=== PATIENT | male | born 1960 ===

== ENCOUNTER 2024-05-21 07:33 | Outpatient (REF) | payer OTHER, SELFPAY ==
--- OUTSIDE RECORDS SUMMARY | 2024-05-21 07:36 | XMS_ITS | Encounter Summary ---
Author Organization [employer] Address [address] [place] [address] Care Team Providers Care Videogame Designer Name Role Phone Wilma Bautista PA-C Primary Care Provider Sherlyn ailable Encounter Details Date Type Department Care Team (Latest Contact Info) Description 05/05/2024 Travel Social History Tobacco Use Types Packs/Day Years Used Date Smoking Tobacco: Never Smokeless Tobacco: Never Alcohol Use Standard Drinks/Week Comments Yes 0 (1 standard drink = 0.6 oz pur e alcohol) Daily Housing Stability Answer Date Recorded What is your housing situation today? I have berry concepcion 05/05/[address] you li ve. Do you have problems with any of the following? None of the above 05/05/2024 Food Insecurity Answer Date Recorded Within the past 12 months, y ou worried that your food would run out before you got money to buy more: Never True 05/05/2024 Within the past 12 months,th e food you bought just didn't last and you didn't have enough money to get more: Never True Transportation Answer Date Recorded In the past 12 months, has l ack of transportation kept you from medical appts, meetings, work or from getting things needed for daily living? No 05/05/2024 Utilities Answer Date Recorded In the past 12 months, has t he electric, gas, oil or water company threatened to shut off services in your home? No 05/05/2024 Depression Answer Date Recorded Patient Health Questionnaire-2 Score 0 05/05/2024 Internet Access Answer Date Recorded Internet Access Q1 Yes 05/05/2024 Internet Access Q2 Not on file 05/05/2024 Sex and Gender Information Value Date Recorded Sex Assigned at Male 05/22/2022 8:39 AM EST Legal Sex Male 8:38 PM EDT Gender Identity Male 05/22/2022 8:39 AM EST Sexual Orientation Choose not to disclose 2022 8:39 AM EST documented as of this encounter Plan of Treatment Not on file documented as of this encounter Visit Diagnoses Not on filedocumented in this encounter Care Teams Videogame Designer Relationship Specialty Start Date End Date Wilma Bautista PA-C PCP - General Family Medicine 12/03/22 documented as of this encounter
--- OUTSIDE RECORDS SUMMARY | 2024-05-21 07:36 | XMS_ITS | Encounter Summary ---
Author Organization [employer] [facility] Address [address] [facility] 7[address] [place] [address] Care Team Providers Care Regulatory Affairs Consultant Name Role Phone Wilma Bautista PA-C Primary Care Provider Unav ailable Encounter Details Date Type Department Care Team (Late st Contact Info) Description 08/29/2023 Orders Only [address] [address] Wilma Bautista PA-C Skin lesion Social History Tobacco Use Types Packs/Day Years Used Date Smoking Tobacco: Never Sex and Gender Information Value Date Recorded Sex Assigned at Male 05/22/2022 8:39 AM EST Legal Sex Male 8:38 PM EDT Gender Identity Male 05/22/2022 8:39 AM EST Sexual Orientation Choose not to disclose 2022 8:39 AM EST documented as of this encounter Plan of Treatment Not on file documented as of this encounter Procedures Procedure Name Priority Date/Time Associated Diagnosis Comments AMB REFERRAL TO DERMATOLOGY Routine 04/29/2023 Skin lesion documented in this encounter Results * Referral to Dermatology (04/29/2023) Wilma Bautista PA-C OUTPATIENT REFERRAL ORDERAB LES Final Result documented in this encounter Visit Diagnoses Diagnosis Skin lesion Unspecified disorder of skin and subcutaneous tissue documented in this encounter Care Teams Regulatory Affairs Consultant Relationship Specialty Start Date End Date Wilma Bautista PA-C PCP - General Family Medicine 12/03/22 documented as of this encounter
--- OUTSIDE RECORDS SUMMARY | 2024-05-21 07:36 | XMS_ITS | Encounter Summary ---
Author Organization [employer] [facility] Address [address] [place] [address] 7[address] [place] [address] Care Team Providers Care Reaming Machine Operator For Plastic Name Role Phone Wilma Bautista PA-C Primary Care Provider Unav ailable Reason for Referral * Consultation (Routine) - Pending Review Specialty Diagnoses / Procedures Referred By Mansoor mccann Referred To Contact Neurosurgery Diagnoses Spinal stenosis of cervical region Carlyn Rocha FNP [address] [place] [address] Phone: tel: fax: David Loco [address] [place] [address] Phone: tel: fax: Referral ID Status Reason Start Date Expiration Date Visits Requested Visits Authorized [id number] Pending Review Specialty Services Required 05/05/2024 05/05/2025 1 1 Reason for Visit * Reason Comments Follow-up Follow up from the [facility], right arm went numb - thought it was a stoke, just stenosis acting up. Encounter Details Date Type Department Care Team (Late st Contact Info) Description 05/05/2024 11:20 AM EST Office Visit [facility] MEDICAL [address] [place] [address] Carlyn Rocha FNP [address] [place] [address] Spinal stenosis of cervical region (Primary Dx); H/O cold sores; Primary hypertension; Alcohol use; Vitamin B 12 deficiency Social History Tobacco Use Types Packs/Day Years Used Date Smoking Tobacco: Never Smokeless Tobacco: Never Tobacco Cessation:Counseling Given: Not Answered Alcohol Use Standard Drinks/Week Comments Yes 0 [...] AM EST documented as of this encounter Last Filed Vital Signs Vital Sign Reading Time Taken Comments Blood Pressure 126/60 05/05/2024 11:29 AM EST Pulse 76 05/05/2024 11:29 AM EST Temperature 36.3 ??C (97.4 ??F) 05/05/2024 11:[address] Respiratory Rate - - Oxygen Saturation - - Inhaled Oxygen Concentration - - Weight 73 kg (161 lb) 05/05/2024 11:29 AM EST Height - - Body Mass Index 24.48 09/30/2023 8:36 AM EDT documented in this encounter Progress Notes * GAEL Martel - 05/05/2024 11:20 AM EST Subjective Doug Moya is a 63 y.o. male who presents for: Chief complaint Follow-up for numbness and tingling in the right arm and cervical stenosis. History of present illness - Numbness and tingling in the right arm, different from usual symptoms in the left arm. - Known cervical stenosis, typically affects the left side. - No recurrence of symptoms since the urgent care visit. - Multi-level degenerative disc disease with inflammation on joint facets. - Previous MRI available from October. - Pain at the base of the top of the shoulders, slightly to the left, with radiating pain down the left side. - History of B12 deficiency. Past medical history - Cervical stenosis - Multi-level degenerative disc disease - History of vitamin B12 deficiency Social history - Consumes 6 to 8 light beers daily Current medications - Ibuprofen, as needed Vitals - Blood pressure: Normal Imaging results - MRI from October: Multi-level degenerative disc disease, inflammation on joint facets Health Maintenance Topic Date Due Depression Screening Never done SDOH Screening Never done Alcohol/Substance Use Screening Never done Influenza Vaccine (1) 12/14/2023 COVID-19 Vaccine (2023- season) 2023 Tobacco Screening 02/10/2025 Colorectal Cancer Screening 02/18/2026 Lipid Panel 06/19/2028 DTaP/Tdap/Td Vaccines (6 - Td or Tdap) 02/12/2032 RSV Patients and Patients Aged 60 years or older (1 - 1-dose 75+ series) 06/29/2035 Zoster Vaccines Completed HIV Screening Completed Hepatitis C Screening Completed RSV under 20 months Aged Out HIB Vaccines Aged Out Hepatitis B Vaccines Aged Out IPV Vaccines Aged Out Hepatitis A Vaccines Aged Out Meningococcal Vaccine Aged Out Rotavirus Vaccines Aged Out HPV Vaccines Aged Out Pneumococcal Vaccine: Pediatrics (0 to 5 Years) and At-Risk Patients (6 to 64 Years) Aged Out Current Outpatient Medications Medication Sig Dispense Refill cholecalciferol (Vitamin D-3) 25 MCG (1000 UT) capsule 1 tablet in the morning. cyanocobalamin (Vitamin B-12) 1000 MCG tablet Take 100 mcg by mouth. FOLIC ACID PO Folic Acid amLODIPine (Norvasc) 5 MG tablet Take 1 tablet (5 mg) by mouth Once per day. 90 tablet 1 LYSINE PO Lysine (Patient not taking: Reported on 05/05/2024) valACYclovir (Valtrex) 1 g tablet Take 1 tablet (1,000 mg) by mouth 2 times daily. 4 tablet 0 No current facility-administered medications for this visit. PAST MEDICAL, SURGICAL, SOCIAL AND FAMILY HISTORY: Reviewed and updated MEDICATIONS AND ALLERGIES: Reviewed and updated ROS: Ten system review negative, with the exception of those noted in the HPI and A&P PHYSICAL EXAMINATION: GENERAL: Well-appearing male in no acute distress. HEENT: No scleral icterus. Moist mucous membranes. No nasal discharge. PULMONARY: Breathing comfortably on room air. CTAB CARDIAC: RRR MUSCULOSKELETAL: Gait appropriate and symmetric. EXTREMITIES: Warm and well perfused. NEUROLOGIC: Motor function grossly intact. PERTINENT LABORATORY DATA: reviewed PERTINENT IMAGING: Reviewed ASSESSMENT AND PLAN: Assessment - Cervical stenosis confirmed as the cause of numbness and tingling in the right arm, consistent with previous symptoms on the left side. - Multi-level degenerative disc disease with associated joint facet inflammation. Plan - Refer to Dr. Loco for a second opinion on cervical stenosis. The referral will be processed, and Dr. Morillo's office should contact the patient once it is complete. The MRI from October will be faxed to Dr. Loco for review. - Monitor kidney function due to potential damage from ibuprofen use. Labs will be ordered to assess kidney, liver, and electrolyte levels. - Schedule a consultation with Dr. Arango, to discuss assistance with alcohol use. The office will call to schedule this appointment. - Order laboratory tests to evaluate kidney, liver, electrolytes, vitamin B12, folate, and blood counts. This is particularly important due to past B12 deficiency and potential anemia related to alcohol use. - Consider vitamin B12 injections if tests indicate persistent deficiency, as injections may offer better absorption than oral supplements. Appointments - Referral to Dr. Loco for a second opinion on cervical stenosis; his office will call to schedule. - Appointment to be scheduled with Dr. Elkins for a consult on alcohol use. Problem List Items Addressed This Visit Vitamin B 12 deficiency Alcohol use Overview Drinks 6 beers per day. Encouraged to quit Relevant Orders Comprehensive metabolic panel Vitamin B12 Folate CBC auto differential Spinal stenosis of cervical region - Primary Overview MRI 2018 showed minor stenosis in C4-5-6. Pain has worsened. Pt would like referral to neurosurgeryfor eval Relevant Orders Referral to Neurosurgery Primary hypertension Overview Rx amlodipine, controlled today. Relevant Medications amLODIPine (Norvasc) 5 MG tablet Other Visit Diagnoses H/O cold sores Relevant Medications valACYclovir (Valtrex) 1 g tablet Medications Discontinued During This Encounter Medication Reason amLODIPine (Norvasc) 5 MG tablet Reorder (will not trigger notification to Pharmacy) valACYclovir (Valtrex) 1 g tablet Reorder (will not trigger notification to Pharmacy) There are no Patient Instructions on file for this visit. No follow-ups on file. documented in this encounter Plan of Treatment Scheduled Orders Name Type Priority Associated Diagnoses Orde r Schedule Comprehensive metabolic panel Lab Routine Alcohol use Expected: 05/05/2024 (Approximate), Expires: 05/05/2025 Vitamin B12 Lab Routine Alcohol use Expected: 05/05/2024 (Approximate), Expires: 05/05/2025 Folate Lab Routine Alcohol use Expected: 05/05/2024 (Approximate), Expires: 05/05/2025 CBC auto differential Lab Routine Alcohol use Expected: 05/05/2024 (Approximate), Expires: 05/05/2025 Scheduled Referrals Name Type Priority Associated Diagnoses Order Schedule Referral to Neurosurgery Outpatient Referral Routine Spinal stenosis of cervical region Expected: 05/05/2024 (Approximate), Expires: 05/05/2025 documented as of this encounter Visit Diagnoses Diagnosis Spinal stenosis of cervical region- Primary Spinal stenosis in cervical region H/O cold sores Primary hypertension Unspecified essential hypertension Alcohol use Other problems related to lifestyle Vitamin B 12 deficiency Other B-complex deficiencies documented in this encounter Care Teams Reaming Machine Operator For Plastic Relationship Specialty Start Date End Date Wilma Bautista PA-C PCP - General Family Medicine 12/03/22 documented as of this encounter
--- OUTSIDE RECORDS SUMMARY | 2024-05-21 07:36 | XMS_ITS | Clinical Summary ---
Author Organization [employer] Address [address] [facility] [address] [place] [address] Care Team Providers Care Underwater Trapper Name Role Phone Wilma Bautista PA-C Primary Care Provider Unav ailable Allergies Active Allergy Reactions Criticality Noted Date Comments Thad Inhibitors Swelling 05/24/2022 Lisinopril Swelling High 12/06/2022 angioedema Medications cholecalciferol (Vitamin D-3) 25 MCG (1000 UT) capsule 1 tablet in the morning. Active LYSINE PO Lysine Active FOLIC ACID PO Folic Acid Activ e cyanocobalamin (Vitamin B-12) 1000 MCG tablet Take 100 mcg by mouth. Active valACYclovir (Valtrex) 1 g tabletIndication s:H/O cold sores Take 1 tablet (1,000 mg) by mouth 2 times daily. 4 tablet 05/05/19 25 Active amLODIPine (Norvasc) 5 MG tabletIndication s:Primary hypertension Take 1 tablet (5 mg) by mouth Once per day. 90 tablet 1 05/05/19 25 Active amLODIPine (Norvasc) 5 MG tabletIndication s:Primary hypertension Take 1 tablet (5 mg) by mouth in the morning. 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 Repeat 07/14- normalized Spinal stenosis of cervical region 12/06/2022 Overview (09/30/2023): MRI 2018 showed minor stenosis in C4-5-6. Pain has worsened. Pt would like referral to neurosurgery for eval Primary hypertension 12/06/2022 Overview (12/06/2022): Rx amlodipine, controlled today. Vitamin D deficiency 05/20/2022 Depression 05/20/2022 Overview (12/06/2022): Denies current sx Vitiligo 05/20/2022 Vitamin B 12 deficiency 05/20/2022 Alcohol use 05/20/2022 Overview (12/06/2022): Drinks 6 beers per day. Encouraged to quit Resolved Problems Problem Noted Date Diagnosed Date Resolved Date Vegetarian 05/20/2022 11/29/2022 Encounters Date Type Department Care Team Description 05/05/2024 11:20 AM EST Office Visit [facility] MEDICAL [address] [place] [phone] Carlyn Rocha FNP Spinal stenosis of cervical region (Primary Dx); H/O cold sores; Primary hypertension; Alcohol use; Vitamin B 12 deficiency 05/05/2024 Travel 04/13/[address] [phone] Carey Norman LPN from Last 3 Months Immunizations Name Administration Dates Next Due INFLUENZA VACCINE QUADRIVALE NT RECOMBINANT PRESERVATIVE FREE RIV4 01/27/2023 Influenza Injectable Quadriv alant Preservative Free IIV4 MDCK 02/11/2022 Influenza injectable quadriv alent IIV4 with preservative 03/07/2020 Influenza injectable quadriv alent preservative free 01/30/2021 Influenza, IIV3, injectable 02/11/2022, 1,03/07/2020 Pneumococcal Polysaccharide PPSV23 02/24/2017, Td (adult), unspecified 10/23/2018 Tdap 02/11/2022, 7,05/21/2016,02/18 Zoster, Recombinant 02/27/2022,12/01/2021 Family History Medical History Relation Name Comments Cataracts Mother Relation Name Status Comments Mother Social History Tobacco Use Types Packs/Day Years Used Date Smoking Tobacco: Never Smokeless Tobacco: Never Tobacco Cessation:Counseling Given: Not Answered Alcohol Use Standard Drinks/Week Comments Yes 0 (1 standard drink = 0.6 oz pur e alcohol) Daily Housing Stability Answer Date Recorded What is your housing situation today? I have berryzena concepcion 05/05/[address] you [...] not to disclose 2022 8:39 AM EST Last Filed Vital Signs Vital Sign Reading Time Taken Comments Blood Pressure 126/60 05/05/2024 11:29 AM EST Pulse 76 05/05/2024 11:29 AM EST Temperature 36.3 ??C (97.4 ??F) 05/05/2024 11:[address] Respiratory Rate 16 09/30/2023 8:36 AM EDT Oxygen Saturation - - Inhaled Oxygen Concentration - - Weight 73 kg (161 lb) 05/05/2024 11:29 AM EST Height 172.7 cm (5' 8 ) 09/30/2023 8:36 AM EDT Body Mass Index 24.48 09/30/2023 8:36 AM EDT Plan of Treatment Health Maintenance Due Date Last Done Comments CT Colonography 1960 FIT DNA/Cologuard 1960 FIT 1960 FOBT 1960 Sigmoidoscopy 1960 Alcohol/Substance Use Screening 1972 Pneumococcal Vaccine: 50+ Years (2 of 2 - PCV) 02/24/2018 02/24/2017, 02/24/2017 COVID-19 Vaccine (6 - 2023- season) 2023 01/27/2023, 08/22/2021, 03/31/2021, Additional history exists Influenza Vaccine (#1) 2023 , 02/11/2022, 02/11/2022, Additional history exists Depression Screening 05/05/2025 05/05/2024, 05/05/19 25 SDOH Screening 05/05/2025 05/05/2024 Tobacco Screening 05/05/2025 05/05/2024 Colonoscopy 02/18/2026 02/19/2016 Colorectal Cancer Screening 02/18/2026 Lipid Panel 06/19/2028 06/20/2023 DTaP/Tdap/Td Vaccines (6 - Td or Tdap) 02/12/2032 02/11/2022, 10/23/2018, 05/21/2016, Additional history exists RSV Patients and Patients Aged 60 years or older (1 - 1-dose 75+ series) 06/29/2035 Zoster Vaccines Completed 02/27/2022, 12/01/2021 HIV Screening Completed 06/20/2023 Hepatitis C Screening Completed 06/20/2023 HIB Vaccines Aged Out No longer eligi ble based on patient's age to complete this topic HPV Vaccines Aged Out No longer eligi ble based on patient's age to complete this topic Hepatitis A Vaccines Aged Out No long er eligible based on patient's age to complete this topic Hepatitis B Vaccines Aged Out No long er eligible based on patient's age to complete this topic IPV Vaccines Aged Out No longer eligi ble based on patient's age to complete this topic Meningococcal Vaccine Aged Out No iztel laura eligible based on patient's age to complete this topic RSV under 20 months Aged Out No longe r eligible based on patient's age to complete this topic Rotavirus Vaccines Aged Out No longer eligible based on patient's age to complete this topic Procedures Procedure Name Priority Date/Time Associated Diagnosis Comments HEPATITIS C AB W/REFLEX TO HCV QUANT NAAT IF POSITIVE Routine 06/20/2023 8:18 AM EST Routine health maintenance HIV ANTIBODY/ANTIGEN, 4TH GENERATION Routine 06/20/2023 8:18 AM EST Routine health maintenance LIPID PANEL, STANDARD Routine 06/20/2023 8:18 AM EST Primary hypertension COLONOSCOPY Routine 02/19/2016 12:00 AM EST from Last 3 Months or Most Recently Relevant to Health Maintenance Results * HIV Antibody/Antigen, 4th Generation (06/20/2023 8:18 AM EST) Result 4th Gen HIV Antibody Antigen NEGATIVE (NEG) [facility] Comment: Negative for antibodies to HIV 1 and HIV 2 and P24 antigen. Reference range: Negative Additional note: Written patient authorization is required for each separate release of this test result. This test was performed on the [employer] Cremator immunoassay system. Testing performed or reported by [facility], a Service of [facility], [address] [place] [id number] Fabio Sanchez MD, Chemical Dependency Therapist [facility]# [id number] Blood 06/20/2023 8:18 AM EST 06/20/2023 8:21 AM EST Wilma Bautista PA-C LAB BLOOD ORDERABLES Final Result [facility] [address] [place] [address] * Hepatitis C Antibody w/Reflex HCV Quant PCR (06/20/2023 8:18 AM EST) Hepatitis C Virus Ab, Serum NEGATIVE (NEG) [facility] Comment: Reference range: Negative This test was performed on the [employer] Cremator immunoassay system. Testing performed or reported by [facility], a Service of [facility], [address] [place] [address] [place] [address] Fabio Sanchez MD, Chemical Dependency Therapist CLIA# [id number] 06/20/2023 8:18 AM EST 06/20/2023 8:20 AM EST Wilma Bautista PA-C LAB BLOOD ORDERABLES Final Result [facility] [address] [place] [id number] * Lipid Panel, Standard (06/20/2023 8:18 AM EST) Pathologist [facility] Cholesterol, Total 159 (<200) MG/DL [facility] Triglyceride (mg/dL) in Serum/Plasma 34 (<150) MG/DL [facility] Comment:Fasting HDL Cholesterol 99 (>39) MG/DL [facility] LDL Cholesterol, Calculated 53 (0-130) MG/DL [facility] Non HDL Chol. (LDL+VLDL) 60 (<160) MG/DL [facility] Comment: Testing performed or reported by [facility], a Service of [facility], [address] [place] [id number] Fabio Sanchez MD, Chemical Dependency Therapist CLIA# [id number] Blood Venous blood specimen / Unknown 06/20/2023 8:18 AM EST 06/20/2023 8:21 AM EST Wilma Bautista PA-C LAB BLOOD ORDERABLES Final Result Performing Organization Address City/[facility]/ZIP Co de Phone Number [facility] [address] [place] [id number] * COLONOSCOPY: ARLENE MCRAE MD (02/19/2016 12:00 AM EST) Anatomical Region Laterality Modality Endoscopy 02/19/2016 Narrative 02/19/2016 12:00 AM EST Refer to Fovea for result details [facility] Procedure: COLONOSCOPY: ARLENE MCRAE MD Procedure Note Provider, MD Grant - 08/08/2022 Refer to Fovea for result details [facility] Procedure: COLONOSCOPY: ARLENE MCRAE MD Historical Provider ENDOSCOPY PROCEDURE ORDER HARLAN Final Result from Last 3 Months or Most Recently Relevant to Health Maintenance Insurance [facility] [place] Care Teams Underwater Trapper Relationship Specialty Start Date End Date Wilma Bautista PA-C PCP - General Family Medicine 12/03/22
== END 2024-05-21 07:34 | disposition home or self-care (01) ==
LOC: CF 07:33
DX: Z13.89 Encounter for screening for other disorder (principal)

== ENCOUNTER → 2024-05-21 08:56 | Outpatient (AMB) | payer OTHER, SELFPAY ==
--- NOTE | 2024-05-21 09:00 | A.SPINEOV_ITS ---
Vital Signs 05/21/24 09:15 Height 5 ft 8 in Weight 162 lb BMI 24.6 Intake Visit Reasons: cervical stenosis Intake Note: Mr. Moya is here today c/o neck pain that radiates down to the left arm. Quality Specialist Required: No Allergies DINAH Inhibitors Allergy (Severe, Verified 05/21/24 09:17) Swelling Physical Exam Vital Signs: BMI result Body Mass Index 24.6 Assessment & Plan Assessment & Plan (1) Neck pain: Code(s): M54.2 - Cervicalgia Category: Medical Plan Dear Carlyn, Thank you for referring Mr Moya to our office today. He is a very nice 63-year-old gentleman presents to the office today for evaluation of neck pain primarily on the left side that has been going on for about 4 years. He works doing architectural drafting and if he is particularly busy for number of days in a row it will become very irritated. It is located somewhere along the lower left cervical posterior neck region. Will occasionally get tingling in his hand as well at times if he is very busy. He has no shooting radicular pain down the arm. Occasionally gets tingling on the right side too. He previously underwent physical therapy for this when it 1st started 4 years ago. He is due to restart therapy but he has been having a hard time getting an appointment. He did see someone who does holistic medicine and they did do some acupuncture on him and that seemed to help. He tried heat packs and he uses ibuprofen if it is particularly bad. It is not disabling or crippling type pain but it is bothers ome and distracting when he is trying to work a lot. No cortisone injections at this point. He did see a surgeon from [facility] who was just recommended conservative management. PMH: Hypertension Social hx: Smokes marijuana occasionally, drinks about 5-6 beers a night. Does not smoke cigarettes Medications: Takes a medication for hypertension and occasional ibuprofen Allergies: DINAH inhibitor Physical exam: Awake alert oriented no acute distress, he has full strength of bilateral upper and lower extremities with normal reflexes Imaging review: Cervical MRI done at [facility] shows that the gentleman has mild degenerative disc disease, C4-5 and C5-6 he has mild foraminal narrowing. On the left at C4-5 he does have facet inflammation. No spinal cord compression seen. Impression: 63-year-old gentleman with history of left-sided neck pain, located more in the left lower cervical posterior region. It has been going on and off for about 4 years, he works doing our architectural drafting and if it is particularly bad can be distracting and make him have trouble sleeping in wanting to continue doing his activities but generally he just gets through it with some ibuprofen. His MRI does show some facet inflammation at C4-5 which may be part of what is causing his pain. It could also be muscular due to the positioning of his head when he is working. Neck pain is very hard to localize on the MRI. Fortunately, it is not bothering him enough that I think he needs an operation or any significant intervention. I do think it would be helpful if he continued with the acupuncture in the therapy. He can continue using Motrin as needed. If it starts to bother him more or starts to shoot down his arm I told him to give us a call back we could consider cortisone injection. The tingling in his hand is probably related to some of the foraminal narrowing on the left side, but again it is not all that bothersome so it is not an indication for surgery. Thank you for allowing us to care for your patient. The total time spent with this visit with this patient was 45 minutes reviewing history, physical exam, cervical imaging review, and implementation of treatment plan or further diagnostic testing Mark Loco MD,PhD [facility] Coding Level of Care Code New Pt Level 4 (13273) Diagnoses Neck pain M54.2
--- OUTSIDE RECORDS SUMMARY | 2024-05-21 09:16 | XMS_ITS | Encounter Summary ---
Author Organization [employer] [facility] Address [address] [place] [address] [address] [place] [address] Care Team Providers Care Construction Scheduler Name Role Phone Wilma Bautista PA-C Primary Care Provider Unav ailable Reason for Referral * Consultation (Routine) - Pending Review Specialty Diagnoses / Procedures Referred By Mansoor mccann Referred To Contact Neurosurgery Diagnoses Spinal stenosis of cervical region Carlyn Rocha FNP [address] [place] [address] Phone: tel: fax: David Loco [address] [place] [address] Phone: tel: fax: Referral ID Status Reason Start Date Expiration Date Visits Requested Visits Authorized [id number] Pending Review Specialty Services Required 05/05/2024 05/05/2025 1 1 Reason for Visit * Reason Comments Follow-up Follow up from [facility], right arm went numb - thought it was a stoke, just stenosis acting up. Encounter Details Date Type Department Care Team (Late st Contact Info) Description 05/05/2024 11:20 AM EST Office Visit [facility] MEDICAL [address] [place] [address] Carlyn Rocha FNP [address] [place] [address] Spinal stenosis of cervical region (Primary Dx); [...] deficiencies documented in this encounter Care Teams Construction Scheduler Relationship Specialty Start Date End Date Wilma Bautista PA-C PCP - General Family Medicine 12/03/22 documented as of this encounter
--- OUTSIDE RECORDS SUMMARY | 2024-05-21 09:16 | XMS_ITS | Encounter Summary ---
Author Organization [employer] Address [address] [place] [address] Care Team Providers Care Outside Sales Name Role Phone Wilma Bautista PA-C Primary [...] on filedocumented in this encounter Care Teams Outside Sales Relationship Specialty Start Date End Date Wilma Bautista PA-C PCP - General Family Medicine 12/03/22 documented as of this encounter
--- OUTSIDE RECORDS SUMMARY | 2024-05-21 09:16 | XMS_ITS | Encounter Summary ---
Author Organization [employer] [facility] Address [address] [place] [address] Care Team Providers Care Forest Fire Control Officer Name Role Phone Wilma Bautista PA-C Primary Care Provider Unav ailable Encounter Details Date Type Department Care Team (Late st Contact Info) Description 08/29/2023 Orders Only [address] [address] Wilma Bautista PA-C Skin lesion Social History [...] tissue documented in this encounter Care Teams Forest Fire Control Officer Relationship Specialty Start Date End Date Wilma Bautista PA-C PCP - General Family Medicine 12/03/22 documented as of this encounter
--- OUTSIDE RECORDS SUMMARY | 2024-05-21 09:16 | XMS_ITS | Clinical Summary ---
Author Organization [employer] Address [address] [place] [address] Care Team Providers Care Bisque Kiln Placer Name Role Phone Wilma Bautista PA-C Primary [...] Description 05/05/2024 11:20 AM EST Office Visit [facility] MEDICAL [address] [place] [phone] Carlyn Rocha FNP Spinal stenosis of cervical region (Primary Dx); H/O cold sores; Primary hypertension; Alcohol use; Vitamin B 12 deficiency 05/05/2024 Travel 04/13/[address] [phone] Carey Norman LPN from Last 3 Months [...] this topic Meningococcal Vaccine Aged Out No itzel laura eligible based on patient's age to [...] 4th Gen HIV Antibody Antigen NEGATIVE (NEG) [facility] Comment: Negative for antibodies to HIV 1 and HIV 2 and P24 antigen. Reference range: Negative Additional note: Written patient authorization is required for each separate release of this test result. This test was performed on the [employer] Analyst immunoassay system. Testing performed or reported by [facility], a Service of [facility], [address] [place] [id number] Fabio Sanchez MD, Orthotist [facility]# [id number] Blood 06/20/2023 8:18 AM EST 06/20/2023 8:21 AM EST Wilma Bautista PA-C LAB BLOOD ORDERABLES Final Result [facility] [address] [place] [address] * Hepatitis C Antibody w/Reflex HCV Quant PCR (06/20/2023 8:18 AM EST) Hepatitis C Virus Ab, Serum NEGATIVE (NEG) [facility] Comment: Reference range: Negative This test was performed on the [employer] Analyst immunoassay system. Testing performed or reported by [facility], a Service of [facility], [address] [place] [address] [place] [address] Fabio Sanchez MD, Orthotist CLIA# [id number] 06/20/2023 8:18 AM EST 06/20/2023 8:20 AM EST Wilma Bautista PA-C LAB BLOOD ORDERABLES Final Result [facility] [address] [place] [phone] * Lipid Panel, Standard (06/20/2023 8:18 AM EST) Pathologist [facility] Cholesterol, Total 159 (<200) MG/DL [facility] Triglyceride (mg/dL) in Serum/Plasma 34 (<150) MG/DL [facility] Comment:Fasting HDL Cholesterol 99 (>39) MG/DL [facility] LDL Cholesterol, Calculated 53 (0-130) MG/DL [facility] Non HDL Chol. (LDL+VLDL) 60 (<160) MG/DL [facility] Comment: Testing performed or reported by [facility], a Service of [facility], [address] [place] [id number] Fabio Sanchez MD, Orthotist CLIA# [id number] Blood Venous blood specimen / Unknown 06/20/2023 8:18 AM EST 06/20/2023 8:21 AM EST Wilma Bautista PA-C LAB BLOOD ORDERABLES Final Result Performing Organization Address City/[facility]/ZIP Co de Phone Number [facility] [address] [place] [phone] * COLONOSCOPY: ARLENE MCRAE MD (02/19/2016 12:00 [...] Recently Relevant to Health Maintenance Insurance [facility] D[facility] Care Teams Bisque Kiln Placer Relationship Specialty Start Date End Date Wilma Bautista PA-C PCP - General Family Medicine 12/03/22
== END | disposition home or self-care (01) ==
PROVIDERS: PCP Nurse Practitioner Family; Referring Provider Nurse Practitioner Family; Visit Provider Physician Assistant
CPT/HCPCS: 99204